=== PATIENT | female | born 1980 | race Caucasian/White ===

== ENCOUNTER 2020-07-07 13:57 | Emergency (ER) | payer OTHER | END 2020-07-07 14:13 | disposition home or self-care (01) | LOC: JVIRT 13:57 | DX: Z03.818 Encounter for observation for suspected exposure to other biological agents ruled out (principal) | CPT/HCPCS: C9803; Q3014-GT; U0003 ==

== ENCOUNTER 2021-07-17 18:15 | Emergency (ER) | payer OTHER ==
[2021-07-17 18:42] VITALS: BP 139/94; PULSE 64; TEMP 99; BMI 38.4
[2021-07-17] MEDS ORDERED: ALBUTEROL SO4 2.5/IPRATROPIUM 0.5 INH SOL 3 ML VIAL.NEB. NEB ONE ×2 (19:51→19:54)
== END 2021-07-17 20:24 | disposition home or self-care (01) ==
LOC: FER 18:15
PROC: 3E0F7GC Introduction of Other Therapeutic Substance into Respiratory Tract, Via Natural or Artificial Opening (ICD-10-PCS; principal; 2021-07-17)
DX: J45.40 Moderate persistent asthma, uncomplicated (principal)
CPT/HCPCS: 99283-25

== ENCOUNTER 2022-04-18 14:34 | Emergency (ER) | payer OTHER ==
[2022-04-18 14:54] VITALS: BP 155/88; PULSE 83; RESP 16; TEMP 99; BMI 38.2
== END 2022-04-18 15:27 | disposition home or self-care (01) ==
LOC: FER 14:34
DX: R05.2 Subacute cough (principal)
CPT/HCPCS: 0241U-QW; 99283-25